=== PATIENT | female | born 1955 | race African-American/Black ===

== ENCOUNTER 2017-02-11 15:51 | Emergency (ER) | payer MEDICARE, OTHER ==
--- NOTE | ~2017-02-11 | CT4 ---
[facility] A Service of [facility] RADIOLOGY TEXT RESULTS PATIENT: GERMAN GILLILAND LOCATION: SED : 57 UNIT #: [id number] AGE: [address]: Jaiden Neil MD SEX: F ORDER DR: [id number] [place] [id number] MR#: [id number] Acc #: [id number] NAME: GERMAN GILLILAND : 1955 SEX: F STUDY DATE/TIME: 02/11/2017 16:41 UNIT: SED ROOM: STUDY DESCRIPTION: CT Abd and Pelv Wo Cont Attending Physician: Jaiden Neil M.D. Ordering Physician: Jaiden Neil M.D. Primary Care Physician: Primary Care Physician No MEDICAL IMAGING REPORT This report is preliminary unless electronic signature is present. EXAM CT abdomen and pelvis INDICATIONS Abdominal pain, nausea and vomiting for [address] of the abdomen and pelvis without contrast. Coronal and sagittal reconstructions were obtained. This CT exam was performed with one or more of the following radiation dose reduction techniques: Automatic exposure control, adjustment of mA and/or kV according to patient size, and iterative reconstruction. COMPARISON None available. FINDINGS ABDOMEN: Noncontrast evaluation of the solid abdominal organs are within normal limits. No hydronephrosis. Gallbladder is not distended. The bowel is not dilated. No enlarged retroperitoneal or mesenteric lymph nodes. Abdominal aorta is normal in caliber. The appendix is normal. There are occasional colonic diverticula. PELVIS: No pelvic mass. The bladder is unremarkable. No enlarged pelvic or inguinal lymph nodes. No acute osseous abnormalities. IMPRESSION 1. No acute findings in the abdomen or pelvis. No findings to account for the patient's symptoms. [facility] A Service [facility] RADIOLOGY TEXT RESULTS PATIENT: GERMAN GILLILAND LOCATION: SED : 57 UNIT #: [id number] AGE: [address]: Jaiden Neil MD SEX: F ORDER DR: Dictated by... Aureliano Collins M.D. THIS IS AN ELECTRONICALLY VERIFIED REPORT Aureliano Collins M.D. at 02/12/2017 9:03 AM C/ector TD: 02/12/2017 00:53 JOB #: [id number] MEDICAL IMAGING REPORT Page 1 of 1
--- NOTE | ~2017-02-11 | EKG ---
PATIENT: GERMAN GILLILAND UNIT #: [id number] Ventricular Rate: 56 BPM Atrial Rate: 56 BPM P-R Interval: 174 ms QRS Duration: 82 ms Q-T Interval: 452 ms QTC Calculation(Bezet): 436 ms P [place]: 34 degrees Calculated R [place]: 17 degrees Calculated T [place]: 33 degrees Diagnosis Line: Sinus bradycardia Diagnosis Line: Otherwise normal ECG Diagnosis Line: No previous ECGs available Diagnosis Line: Confirmed by GUSTABO TIAN MD ([id number]) on 02/12/2017 Diagnosis Line: 8:04:14 PM INTERPRETING MD: ASMITA MORTON
[~2017-02-11 15:51] MED LIST: ESTRACE; HYDROCODON-ACE1 EA11 PO; LINZESS290 MCG; METOPROLOL SUCC25 MG PO; PROTONIX PO; VITAMIN D-32000 UNI1; VITAMIN D2400 UNIT
[2017-02-11 17:16] LABS: BASOPHIL% 0.2 % (0-2.5); EOSINOPHIL% 0.4 % (0.0-7.0); HEMATOCRIT 42.9 % (35.0-45.0); HEMOGLOBIN 14.4 gm/dL (12.0-16.0); LYMPHOCYTE# 3.2 X10e3 (1.0-3.5); LYMPHOCYTE% 39.2 % (17.0-45.0); MEAN CELL VOLUME 91.3 FL (83-96); MEAN CORPUSCULAR HEMOGLOBIN 30.7 PG (28-34); MEAN CORPUSCULAR HGB CONC 33.6 g/dL (30-36); MEAN PLATELET VOLUME 7.5 FL (6.5-11.5); MONOCYTE# 0.6 X10e3 (0-1.0); MONOCYTE% 7.8 % (3.0-12.0); NEUTROPHIL# 4.3 X10e3 (1.5-7.1); NEUTROPHIL% 52.4 % (40-75); PLATELET COUNT 297 X10e3 (140-420); WHITE BLOOD COUNT 8.2 X10e3 (4.0-10.5)
[2017-02-11 17:28] LABS: DIFF IND NO
[2017-02-11 17:30] LABS: POC - CKMB <1.0 ng/mL (0.0-7.9); POC - TROPONIN <0.05 ng/mL (<=0.05)
[2017-02-11 17:35] LABS: ALBUMIN SERUM 4.6 g/dL (3.5-5.0); ALKALINE PHOSPHATASE 77 U/L (32-92); ALT (SGPT) 22 U/L (10-40); AMYLASE 16 U/L (0-46); AST (SGOT) 26 U/L (10-42); BILIRUBIN,TOTAL 0.4 mg/dL (0.2-2.0); BLOOD UREA NITROGEN 8 mg/dL (9-23); CALCIUM SERUM 9.2 mg/dL (8.4-10.2); CARBON DIOXIDE 27 mmol/L (22-31); CHLORIDE 103 mmol/L (100-111); CREATININE SERUM 0.8 mg/dL (0.6-1.4); GLUCOSE FASTING 93 mg/dL (70-110); LIPASE 16 U/L (22-51); POTASSIUM 3.3 mmol/L (3.5-5.1); PROTEIN TOTAL SERUM 7.9 g/dL (6.0-8.3); SODIUM 139 mmol/L (135-145)
[2017-02-11 17:37] LABS: URINE SOURCE CLEAN CATCH
[2017-02-11 17:39] LABS: BILIRUBIN, DIRECT <0.1 mg/dL (0.0-0.2); BILIRUBIN,INDIRECT 0.3 mg/dL (0.0-0.9); URINE APPEARANCE CLEAR; URINE BILIRUBIN NEG (NEG); URINE BLOOD TRACE-LYSED (NEG); URINE COLOR YELLOW; URINE GLUCOSE NEG (NORM); URINE KETONE TRACE (NEG); URINE LEUKOCYTE ESTERASE NEG (NEG); URINE NITRATE NEG (NEG); URINE PROTEIN NEG (NEG); URINE SPECIFIC GRAVITY 1.015 (1.003-1.035); URINE UROBILINOGEN 0.2 MG/DL (NORM)
[2017-02-11 17:40] LABS: MICRO INDICATED? YES
[2017-02-11 17:45] LABS: CULTURE INDICATED? NO; URINE BACTERIA NEG (NEG); URINE RBC 0-2 /[HPF] (0-2); URINE WBC 0-2 /[HPF] (0-5)
== END 2017-02-11 18:27 | disposition home or self-care (01) ==
LOC: SED 15:51
PROVIDERS: Emergency Medicine
DX: K29.00 Acute gastritis without bleeding (principal); K21.9 Gastro-esophageal reflux disease without esophagitis; K80.50 Calculus of bile duct without cholangitis or cholecystitis without obstruction; I10 Essential (primary) hypertension; Z90.710 Acquired absence of both cervix and uterus; Z87.891 Personal history of nicotine dependence
CPT/HCPCS: 36415; 74176; 80048; 80076; 81003; 82150; 82553; 83690; 84484; 85025; 93005; 96361; 96374; 96375; 99284; C9113; J2270; J2405